=== PATIENT | female | born 1940 | race Caucasian/White ===

== ENCOUNTER 2020-05-27 15:01 | Outpatient (REF) | payer MEDICARE, SELFPAY ==
[2020-05-27 16:09] LABS: MANUAL DIFF FLAG NO
[2020-05-27 16:16] LABS: Basophils Percent Auto 0.6 % (0-2); Eosinophils Absolute Auto 0.1 X10*3/uL (0.0-0.4); Eosinophils Percent Auto 1.9 % (0-4); Hematocrit 37.3 % (37-47); Hemoglobin 12.2 g/dl (12.0-16.0); Imm Gran Abs Auto 0.01 X10*3/uL (0.00-0.03); Imm Gran Pct Auto 0.2 % (0.0-0.4); Lymphocytes Absolute Auto 2.5 X10*3/uL (1.2-4.9); Lymphocytes Percent Auto 47.4 % (20-40); Mean Corpuscular HGB Conc 32.7 g/dl (31.0-35.0); Mean Corpuscular Hemoglobin 33.7 pg (27.0-33.0); Mean Platelet Volume 10.7 fL (9.4-12.3); Monocytes Absolute Auto 0.5 X10*3/uL (0.1-1.2); Neutrophils Absolute Auto 2.1 X10*3/uL (2.0-8.3); Neutrophils Percent Auto 39.9 % (45-73); Platelet Count 175 X10*3/uL (160-400); Red Blood Count 3.62 X10*6/uL (4.20-5.50); Red Cell Distribution Width 12.7 % (11.0-16.0); White Blood Count 5.3 X10*3/uL (4.8-10.8)
[2020-05-27 16:31] LABS: Alanine Aminotransferase 11 U/L (0-31); Albumin Level 4.4 g/dL (3.5-5.0); C Reactive Protein 0.12 mg/dL (< or = 0.50); Estimated Glomerular Filt Rate 59
== END 2020-05-27 15:02 | disposition home or self-care (01) ==
LOC: HO.LABR 15:01
PROVIDERS: PCP Internal Medicine; Visit Provider Internal Medicine Rheumatology
DX: M05.79 Rheumatoid arthritis with rheumatoid factor of multiple sites without organ or systems involvement (principal)
CPT/HCPCS: 36415; 82040; 82565; 84460; 85025; 86140

== ENCOUNTER 2021-01-28 14:36 | Outpatient (REF) | payer MEDICARE, SELFPAY ==
[2021-01-28 14:52] LABS: MANUAL DIFF FLAG NO
[2021-01-28 15:06] LABS: Basophils Percent Auto 0.4 % (0-2); Eosinophils Absolute Auto 0.1 X10*3/uL (0.0-0.4); Eosinophils Percent Auto 1.2 % (0-4); Hematocrit 34.7 % (37.0-47.0); Hemoglobin 11.4 g/dl (12.0-16.0); Imm Gran Abs Auto 0.01 X10*3/uL (0.00-0.03); Imm Gran Pct Auto 0.1 % (0.0-0.4); Lymphocytes Percent Auto 36.6 % (20-40); Mean Corpuscular HGB Conc 32.9 g/dl (31.0-35.0); Mean Corpuscular Hemoglobin 33.2 pg (27.0-33.0); Mean Corpuscular Volume 101.2 fL (80.0-98.0); Monocytes Absolute Auto 0.8 X10*3/uL (0.1-1.2); Neutrophils Absolute Auto 4.2 x10*3/uL (2.0-8.3); Neutrophils Percent Auto 51.7 % (45-73); Platelet Count 191 X10*3/uL (160-400); Red Blood Count 3.43 X10*6/uL (4.20-5.50); Red Cell Distribution Width 12.8 % (11.0-16.0); White Blood Count 8.1 X10*3/uL (4.8-10.8)
[2021-01-28 15:28] LABS: Alanine Aminotransferase 11 U/L (0-31); Albumin Level 4.2 g/dL (3.5-5.0); Aspartate Amino Transferase 24 U/L (5-31); C Reactive Protein 1.02 mg/dL (< or = 0.50); Estimated Glomerular Filt Rate > 60
== END 2021-01-28 14:37 | disposition home or self-care (01) ==
LOC: HO.LABR 14:36
PROVIDERS: Absent Provider Internal Medicine; PCP Internal Medicine; Visit Provider Internal Medicine Rheumatology
DX: M05.79 Rheumatoid arthritis with rheumatoid factor of multiple sites without organ or systems involvement (principal)
CPT/HCPCS: 36415; 82040; 82565; 84450; 84460; 85025; 86140

== ENCOUNTER 2021-05-12 11:01 | Outpatient (REF) | payer MEDICARE, SELFPAY ==
[2021-05-12 11:19] LABS: MANUAL DIFF FLAG NO
[2021-05-12 11:55] LABS: Basophils Absolute Auto 0.1 X10*3/uL (0.0-0.2); Basophils Percent Auto 0.7 % (0-2); Eosinophils Absolute Auto 0.1 X10*3/uL (0.0-0.4); Eosinophils Percent Auto 1.1 % (0-4); Hematocrit 37.1 % (37.0-47.0); Hemoglobin 11.8 g/dl (12.0-16.0); Imm Gran Abs Auto 0.02 X10*3/uL (0.00-0.03); Imm Gran Pct Auto 0.2 % (0.0-0.4); Lymphocytes Absolute Auto 2.8 X10*3/uL (1.2-4.9); Lymphocytes Percent Auto 32.5 % (20-40); Mean Corpuscular HGB Conc 31.8 g/dl (31.0-35.0); Mean Corpuscular Hemoglobin 33.1 pg (27.0-33.0); Mean Corpuscular Volume 104.2 fL (80.0-98.0); Mean Platelet Volume 10.8 fL (9.4-12.3); Monocytes Absolute Auto 0.9 X10*3/uL (0.1-1.2); Monocytes Percent Auto 10.4 % (2-11); Neutrophils Absolute Auto 4.7 x10*3/uL (2.0-8.3); Neutrophils Percent Auto 55.1 % (45-73); Platelet Count 199 X10*3/uL (160-400); Red Blood Count 3.56 X10*6/uL (4.20-5.50); Red Cell Distribution Width 12.9 % (11.0-16.0); White Blood Count 8.5 X10*3/uL (4.8-10.8)
[2021-05-12 12:39] LABS: Alanine Aminotransferase 12 U/L (0-31); Albumin Level 4.2 g/dL (3.5-5.0); Aspartate Amino Transferase 28 U/L (5-31); C Reactive Protein 0.94 mg/dL (< or = 0.50); Estimated Glomerular Filt Rate 59
== END 2021-05-12 11:02 | disposition home or self-care (01) ==
LOC: HO.LABR 11:01
PROVIDERS: Internal Medicine Rheumatology; PCP Internal Medicine; Visit Provider Internal Medicine Rheumatology
DX: M05.79 Rheumatoid arthritis with rheumatoid factor of multiple sites without organ or systems involvement (principal)
CPT/HCPCS: 36415; 82040; 82565; 84450; 84460; 85025; 86140

== ENCOUNTER 2021-09-06 11:39 | Outpatient (REF) | payer MEDICARE, SELFPAY ==
[2021-09-06 11:58] LABS: MANUAL DIFF FLAG NO
[2021-09-06 13:06] LABS: Basophils Absolute Auto 0.1 X10*3/uL (0.0-0.2); Basophils Percent Auto 0.8 % (0-2); Eosinophils Absolute Auto 0.1 X10*3/uL (0.0-0.4); Hematocrit 37.2 % (37.0-47.0); Imm Gran Abs Auto 0.03 X10*3/uL (0.00-0.03); Imm Gran Pct Auto 0.4 % (0.0-0.4); Lymphocytes Absolute Auto 2.3 X10*3/uL (1.2-4.9); Mean Corpuscular HGB Conc 32.3 g/dl (31.0-35.0); Mean Corpuscular Hemoglobin 33.1 pg (27.0-33.0); Mean Corpuscular Volume 102.5 fL (80.0-98.0); Monocytes Absolute Auto 0.8 X10*3/uL (0.1-1.2); Monocytes Percent Auto 9.4 % (2-11); Neutrophils Absolute Auto 4.7 x10*3/uL (2.0-8.3); Neutrophils Percent Auto 59.4 % (45-73); Platelet Count 218 X10*3/uL (160-400); Red Blood Count 3.63 X10*6/uL (4.20-5.50); Red Cell Distribution Width 13.1 % (11.0-16.0)
[2021-09-06 13:59] LABS: Alanine Aminotransferase 11 U/L (0-31); Albumin Level 4.3 g/dL (3.5-5.0); Aspartate Amino Transferase 27 U/L (5-31); C Reactive Protein 0.63 mg/dL (< or = 0.50); Estimated Glomerular Filt Rate > 60
== END 2021-09-06 11:40 | disposition home or self-care (01) ==
LOC: HO.LABR 11:39
PROVIDERS: PCP Internal Medicine; Referring Provider Internal Medicine; Visit Provider Internal Medicine Rheumatology
DX: J84.9 Interstitial pulmonary disease, unspecified (principal); M05.79 Rheumatoid arthritis with rheumatoid factor of multiple sites without organ or systems involvement
CPT/HCPCS: 36415; 82040; 82565; 84450; 84460; 85025; 86140

== ENCOUNTER 2022-09-18 14:03 | Outpatient (REF) | payer MEDICARE, SELFPAY ==
[2022-09-18 15:41] LABS: Alanine Aminotransferase 10 U/L (0-31); Albumin Level 4.2 g/dL (3.5-5.0); Alkaline Phosphatase 43 U/L (39-117); Aspartate Amino Transferase 25 U/L (5-31); Bilirubin Direct 0.2 mg/dL (0.0-0.5); Bilirubin Total 0.5 mg/dL (0.0-1.0); Estimated Glomerular Filt Rate 42
== END 2022-09-18 14:04 | disposition home or self-care (01) ==
LOC: HO.LAB 14:03
PROVIDERS: PCP Internal Medicine; Visit Provider Hospitalist
DX: M06.9 Rheumatoid arthritis, unspecified (principal)
CPT/HCPCS: 36415; 80076; 82565

== ENCOUNTER 2022-11-29 09:47 | Outpatient (REF) | payer MEDICARE, SELFPAY ==
--- NOTE | ~2022-11-29 | US_ITS ---
EXAMINATION: US ABDOMEN COMPLETE CLINICAL INFORMATION: Right upper quadrant pain. COMPARISON: Ultrasound abdomen complete 04/13/2016. TECHNIQUE: Real-time imaging of the abdominal viscera. FINDINGS: PANCREAS: Normal. ABDOMINAL AORTA: Atherosclerosis of the abdominal aorta. INFERIOR VENA CAVA: Visualized portions are normal. LIVER: Normal. The liver is normal in size. The liver contour is normal. Parenchymal echogenicity is normal. No focal hepatic lesion. There is no intrahepatic biliary duct dilatation seen. GALLBLADDER: Normal. The gallbladder is physiologically distended without evidence of stones, sludge, polyps, wall thickening or pericholecystic fluid. COMMON BILE DUCT: Normal in caliber measuring 0.44 cm in diameter. RIGHT KIDNEY: Benign-appearing renal cysts and likely benign renal cysts measuring up to 3.4 cm. No follow-up imaging recommended. No hydronephrosis or renal calculi. The kidney measures 10.6 cm in maximum dimension. LEFT KIDNEY: Benign-appearing renal cyst measuring 1 cm. No follow up imaging is recommended. No hydronephrosis or renal calculi. The kidney measures 10.0 cm in maximum dimension. SPLEEN: Normal. The spleen measures 8.2 cm in maximum dimension. FREE FLUID: None. US/US abdomen complete IMPRESSION: No acute findings to explain symptoms of right upper quadrant pain. Atherosclerosis of the abdominal aorta.
== END 2022-11-29 09:48 | disposition home or self-care (01) ==
LOC: HO.HMGCX 09:47
PROVIDERS: PCP Internal Medicine; Visit Provider Internal Medicine
DX: R10.11 Right upper quadrant pain (principal)
CPT/HCPCS: 76700